=== PATIENT | female | born 1995 | race Caucasian/White ===

== ENCOUNTER 2019-07-24 17:14 | Day surgery (SDC) | payer BC ==
[2019-07-24 17:46] VITALS: TEMP 98.4; BMI 29.7
[2019-07-24] MEDS ORDERED: hydrALAZINE 20 MG/ML VIAL SLOW IVP PRN (18:18)
--- NOTE | 2019-07-24 18:20 | PDOC.LDHP ---
Labor and Delivery H&P Chief complaint: other HPI: 23 y/o at 38w3d, patient of Dr. Wilcox, presents for BP evaluation. Patient had her blood pressure taken at [facility] after noticing her feet were more swollen than usual and it was elevated. She had a VIEYRA that resolved without any intervention and otherwise has no PIH sx. Denies VB, LOF, ctx, or decreased FM. ROS neg for HEENT, cv, pulm, gi, gu, neuro, psych, skin, musculoskeletal or constitutional symptoms other than mentioned above. OB History Details: 1 prior term 1 SAB requiring D&C (2018) Current complications: none Current medications: none Previous surgical history: dilation and curettage Social history: none - Physical Exam Vital signs reviewed and normal: yes General: NAD, resting Lungs: nonlabored breathing Abdomen: gravid Extremeties: no edema FHT: category 1 (140s, mod variability, + accels, no decels) [place] contractions every: none - Assessment 23 y/o at 38w3d with all normal BPs here and no PIH sx. No further workup indicated at this time. status reassuring with reactive NST. - Plan -: D/c home with precautions. Advised to keep followup appointment as scheduled for tomorrow.
== END 2019-07-24 18:35 | disposition home health service (06) ==
LOC: L&D/OP 17:14
PROVIDERS: ATTEND Obstetrics & Gynecology
DX: O99.89 Other specified diseases and conditions complicating pregnancy, childbirth and the puerperium (principal); R03.0 Elevated blood-pressure reading, without diagnosis of hypertension; R51 Headache; Z3A.38 38 weeks gestation of pregnancy

== ENCOUNTER 2019-07-26 04:36 | Outpatient (CLI) | payer BC, OTHER ==
[2019-07-26 18:04] LABS: SARS-CoV-2 MS2 Positive; SARS-CoV-2 N Gene Negative; SARS-CoV-2 S Gene Negative; SARS-CoV-2 orf1ab Negative
== END 2019-07-26 04:37 | disposition home or self-care (01) ==
LOC: ERS 04:36
PROVIDERS: ATTEND Obstetrics & Gynecology
DX: Z01.812 Encounter for preprocedural laboratory examination (principal); Z11.59 Encounter for screening for other viral diseases
CPT/HCPCS: 87635; U0003

== ENCOUNTER 2019-07-27 08:39 | Inpatient (IN) | payer BC, OTHER ==
[2019-07-27] MEDS ORDERED: NS w/ Oxytocin 10 units 500 ML ONE (09:24)
[2019-07-27] MEDS ORDERED: Misoprostol 200 MCG TAB PR PRN (09:29)
[2019-07-27] MEDS ORDERED: Diphenoxylate HCl/Atropine Tablet PO PRN ×2 (09:29)
[2019-07-27] MEDS ORDERED: Docusate 100 MG CAP PO PRN (09:29)
[2019-07-27] MEDS ORDERED: Butorphanol Tartrate 1 MG/ML VIAL SLOW IVP PRN (09:29)
[2019-07-27] MEDS ORDERED: Promethazine HCl 25 MG/ML VIAL IM PRN ×2 (09:29→13:15)
[2019-07-27] MEDS ORDERED: Ondansetron PF 4 MG/2 ML Vial IVP PRN ×3 (09:29→19:22)
[2019-07-27] MEDS ORDERED: hydrALAZINE 20 MG/ML VIAL SLOW IVP PRN ×2 (09:29→19:22)
[2019-07-27] MEDS ORDERED: HYDROcodone/Acetaminophen 5/325 mg Tablet PO PRN ×2 (09:29)
[2019-07-27] MEDS ORDERED: NS w/ Oxytocin 10 units 500 ML IV SCH ×2 (09:29)
[2019-07-27] MEDS ORDERED: Ibuprofen 800 MG TAB PO PRN (09:29)
[2019-07-27] MEDS ORDERED: Lidocaine 1% (PF) 30 ML VIAL SC PRN (09:29)
[2019-07-27] MEDS ORDERED: Acetaminophen 500 MG TAB PO PRN (09:29)
[2019-07-27] MEDS ORDERED: NS / Oxytocin 40 units/1000ml 1,000 ML IV PRN (09:29)
[2019-07-27] MEDS: Lactated Ringer's 1,000 ML IV SCH (09:35)
[2019-07-27 09:40] VITALS: BMI 28.8
[2019-07-27 09:48] LABS: Hemoglobin 10.9 g/dL (12.0-16.0); Mean Corpuscular HGB CONC 33.1 g/dL (32.0-36.0); Mean Corpuscular Hemoglobin 30.2 pg (27.0-31.0); Mean Corpuscular Volume 91.1 fL (78.0-98.0); Mean Platelet Volume 8.6 fL (7.4-10.4); Platelet Count 211 thou/uL (130-400); RBC Distribution Width 13.2 % (11.5-14.5); White Blood Cell (WBC) Count 11.2 thou/uL (4.8-10.8)
[2019-07-27 10:24] LABS: Syphilis Antibody Nonreactive (Nonreactive); Syphilis Antibody Index 0.03 S/CO (<1.00 Non-Reactive)
[2019-07-27 10:25] LABS: HBSAg Index 0.17 S/CO (0-0.99); HIV (1/2) Antibody/Antigen Non-Reactive (NonReactive); HIV 1/2 INDEX 0.06 S/CO (<1.00); Hep B Surf Ag Non-Reactive S/CO (NonReactive)
[2019-07-27] MEDS ORDERED: Fentanyl 4 mcg/Bup 0.1% Cadd 100 ML ONE (12:50)
[2019-07-27] MEDS ORDERED: Communication Order-Pharmacy FS SCH (13:15)
[2019-07-27] MEDS ORDERED: Naloxone HCl 0.4 mg/ml Vial IVP PRN ×2 (13:15)
[2019-07-27] MEDS ORDERED: Fentanyl 4 mcg/Bupivacaine 0.1% Cassette 100 ML EPIDURAL SCH (13:15)
[2019-07-27] MEDS ORDERED: EPHEDRINE 25 MG/5 ML SYRINGE SLOW IVP PRN (13:15)
[2019-07-27] MEDS ORDERED: diphenhydrAMINE 50 MG/ML VIAL IVP PRN (13:15)
[2019-07-27] MEDS ORDERED: Lactated Ringer's 500 ML IV PRN (13:15)
[2019-07-27] MEDS ORDERED: Acetaminophen 325 MG TAB PO PRN (13:15)
[2019-07-27] MEDS ORDERED: diphenhydrAMINE 25 MG CAP PO PRN (19:22)
[2019-07-27] MEDS ORDERED: Milk Of Magnesia 30 ML UDCUP PO PRN (19:22)
[2019-07-27] MEDS ORDERED: Lanolin Ointment 7 GM TUBE TOP PRN (19:22)
[2019-07-27] MEDS ORDERED: Preparation H Ointment 28 GM TUBE PR PRN (19:22)
[2019-07-27] MEDS ORDERED: Benzocaine-Menthol 82.5 ML CAN TOP PRN (19:22)
[2019-07-27] MEDS ORDERED: Misoprostol 200 MCG TAB VAG PRN (19:22)
[2019-07-27] MEDS ORDERED: Adacel (T-DAP) 0.5 ML SYRINGE IM ONE (19:22)
[2019-07-27] MEDS ORDERED: Bisacodyl 10 MG SUPP PR PRN (19:22)
[2019-07-27] MEDS ORDERED: NS / Oxytocin 40 units/1000ml 1,000 ML IV SCH (19:30)
[2019-07-27] MEDS ORDERED: Zolpidem Tartrate 5 MG TAB PO PRN (21:45)
[2019-07-27] MEDS ORDERED: Acetaminophen/Codeine 30-300mg Tablet PO PRN ×2 (21:45)
[2019-07-27] MEDS: Ibuprofen 800 MG TAB PO SCH (22:23)
[2019-07-27] MEDS: Docusate Calcium (SURFAK) 240 MG CAP PO SCH (22:23)
[2019-07-28] MEDS: Lactated Ringer's 1,000 ML IV SCH (01:52)
[2019-07-28] MEDS: Ibuprofen 800 MG TAB PO SCH ×2 (05:29→14:29)
[2019-07-28 05:59] LABS: Hemoglobin 8.8 g/dL (12.0-16.0); Mean Corpuscular Hemoglobin 31.3 pg (27.0-31.0); Mean Corpuscular Volume 92.1 fL (78.0-98.0); Mean Platelet Volume 8.2 fL (7.4-10.4); Platelet Count 169 thou/uL (130-400); Red Blood Cell (RBC) Count 2.81 mill/uL (4.20-5.40)
[2019-07-28] MEDS: Docusate Calcium (SURFAK) 240 MG CAP PO SCH (08:11)
[2019-07-28] MEDS: Ferrous Sulfate 325 MG TAB PO SCH ×2 (08:11→18:17)
[2019-07-28] MEDS ORDERED: Prenatal Vitamin 1 TAB PO SCH (09:00)
[2019-07-28 17:45] VITALS: BP 109/71; TEMP 98.6
== END 2019-07-28 20:05 | disposition home or self-care (01) | DRG 806 ==
LOC: L&D 08:39 → 3SW 21:42
PROVIDERS: ADMIT Obstetrics & Gynecology; ATTEND Obstetrics & Gynecology
PROC: 10D07Z6 Extraction of Products of Conception, Vacuum, Via Natural or Artificial Opening (ICD-10-PCS; principal; 2019-07-27)
PROC: 0W8NXZZ Division of Female Perineum, External Approach (ICD-10-PCS; 2019-07-27)
DX: O76 Abnormality in fetal heart rate and rhythm complicating labor and delivery (principal); Q61.3 Polycystic kidney, unspecified; Z37.0 Single live birth; Z3A.38 38 weeks gestation of pregnancy
CPT/HCPCS: 36415; 51702; 85027; 86780; 86850; 86900; 86901; 87340; 87389; 87635; 99282; 99285; J2590; U0003